=== PATIENT | female | born 1970 | race Caucasian/White ===

== ENCOUNTER → 2023-03-22 | Day surgery (SDC) | payer OTHER ==
[2023-03-21 14:29] LABS: BUN 19 mg/dl (9-23); CHLORIDE 106 mmol/L (98-107); POTASSIUM 3.9 mmol/L (3.4-5.1)
[~2023-03-22] VITALS: Ht 165.1 cm; Wt 113.4 kg
[~2023-03-22] MED LIST: CETIRIZINE HYDR10 MG PO; COZAAR50 M1 PO; DRAMAMINE LESS25 MG PO; IBUPROFEN600 MG PO; LEVOTHYROXINE25 MCG PO; LIPITOR80 MG PO; METFORMIN HYD1000 MG PO; NOVOLOG MI100 UNIT/2 SQ; OSTERA TABLET1 EACH PO; PROTONIX TR40 M1 PO; SINGULAIR10 M1 PO; VENT7GM INH
[2023-03-22 06:59] VITALS: BP 108/69
[2023-03-22 07:55] VITALS: BP 123/62
[2023-03-22 08:10] VITALS: BP 115/60
[2023-03-22 08:23] VITALS: BP 130/71
== END | disposition home or self-care (01) ==
LOC: SDC 03-19 08:00
PROVIDERS: ATTEND Orthopaedic Surgery
DX: G56.03 Carpal tunnel syndrome, bilateral upper limbs (principal); I10 Essential (primary) hypertension; E11.9 Type 2 diabetes mellitus without complications; K21.9 Gastro-esophageal reflux disease without esophagitis; E78.00 Pure hypercholesterolemia, unspecified

== ENCOUNTER → 2023-08-08 | Outpatient (CLI) | payer OTHER | END | disposition home or self-care (01) | LOC: RAD 14:24 | PROVIDERS: ATTEND Orthopaedic Surgery | DX: S62.102A Fracture of unspecified carpal bone, left wrist, initial encounter for closed fracture (principal); X58.XXXA Exposure to other specified factors, initial encounter; Y93.89 Activity, other specified; Y92.89 Other specified places as the place of occurrence of the external cause; Y99.8 Other external cause status ==